=== PATIENT | female | born 1990 | race African-American/Black ===

== ENCOUNTER 2019-02-17 20:55 | Emergency (ER) | payer OTHER ==
[~2019-02-17] VITALS: Ht 177.8 cm; Wt 97.5 kg
[2019-02-17 20:55] VITALS: BP 122/68
--- NOTE | 2019-02-17 20:55 | NUR ---
PATIENT AMBULATED TO ER BED 6.
--- NOTE | 2019-02-17 21:16 | NUR ---
28 YO F BIB SELF PRESENTS TO THE ED C/O DRY, NON-PRODUCTIVE COUGH X 5 DAYS ACCOMPANIED BY CHEST DISCOMFORT WHEN COUGHING. DENIES FEVER/CHILLS. DENIES N/V. PMH: DENIES RX: DENIES PT POSITIONED FOR COMFORT. HOB ELEVATED. SIDE RAIL UP X 1. BED IN LOWEST POSITION. VSS. NO APPARENT DISTRESS AT THIS TIME.
--- NOTE | 2019-02-17 22:20 | NUR ---
Patient discharged with v/s stable. Written and verbal after care instructions given and explained. Patient alert, oriented and verbalized understanding of instructions. Ambulatory with steady gait. All questions addressed prior to discharge. ID band removed. Patient advised to follow up with PMD. Rx of Promethazine with Codeine given. Patient educated on indication of medication including possible reaction and side effects. Opportunity to ask questions provided and answered.
[2019-02-17 22:22] VITALS: BP 122/68
== END 2019-02-17 22:20 | disposition home or self-care (01) ==
LOC: MED 20:55
DX: J40 Bronchitis, not specified as acute or chronic (principal)
CPT/HCPCS: 71045; 99283; Q0092